=== PATIENT | male | born 1965 | race Caucasian/White ===

== ENCOUNTER 2020-07-02 14:25 | Observation (INO) | payer BC ==
--- OUTSIDE RECORDS SUMMARY | 2020-07-02 14:27 | XMS REPORT | Continuity of Care Document ---
:1965 Author Organization [facility] t Address [address] [place] [address] Care Team Providers Name Role Phone Unavailable Unavailable Unavailable Payers Payer Name Policy Type Policy Number Effective Date Expiration Date S ource Problems This patient has no known problems. Allergies, Adverse Reactions, Alerts Allergy Allergy Status Severity Reaction(s) Onset Inactive Treating Comm ents Source Name Type Date Date Clinician No Known DA Active U [facility] 11-05 [place] [facility] 00:00: [facility] Medications This patient has no known medications. Procedures This patient has no known procedures. Results Test Description Test Time Test Comments Results Result Comments Source GLUBED 2019-11-10 10:10:00 Test Item Value Reference Range Interpretation Comme nts GLUBED (test code = GLUBED) 190 mg/dL 60-125 H
[2020-07-02] MEDS ORDERED: BENZONATATE 100 MG CAP PO ONE (14:51)
[2020-07-02] MEDS ORDERED: ASPIRIN 81 MG CHEWABLE TABLET ONE (14:51)
[2020-07-02] MEDS ORDERED: ALBUTEROL INHALER 60 PUFF/8 GM IH ONE (14:51)
[2020-07-02] MEDS ORDERED: METHYLPREDNISOLONE 40 MG INJ ONE (14:51)
[2020-07-02 15:18] LABS: Absolute Lymphocytes (CBC) 0.6 K/uL (0.7-4.9); Basophils % 0.4 % (0-1.3); Hematocrit 47.1 % (39.6-49.0); Lymphocytes % 10.9 % (15.3-44.8); MPV 8.2 fL (7.6-11.3); RBC Red Blood Cell Count 5.61 M/uL (4.33-5.43)
[2020-07-02 15:20] LABS: Protime INR 1.33
[2020-07-02] MEDS ORDERED: ACETAMINOPHEN 500 MG TAB ONE (15:26)
--- NOTE | 2020-07-02 15:31 | RAD REPORT ---
EXAM DESCRIPTION: RAD - Chest Single View - 07/02/2020 3:17 pm CLINICAL HISTORY: Cough;SOB, COVID positive COMPARISON: Portable July 2012 TECHNIQUE: AP portable chest image was obtained 07/02/2020 3:17 pm . FINDINGS: Lung volumes are low. Bilateral airspace opacification is present slightly worse on the le ft. This is primarily peripheral in distribution. Cardiac silhouette is enlarged by the body habitus and low lung volume affects. Trachea is midline. No measurable pleural effusion and no pneumothorax. No acute bony abnormality seen. No acute aortic findings suspected. IMPRESSION: Bilateral COVID-19 pneumonia pattern worse on the left.
[2020-07-02 15:58] LABS: ALT/SGPT 75 U/L (12-78); AST/SGOT 83 U/L (15-37); Albumin 3.5 g/dL (3.4-5.0); Alkaline Phosphatase 58 U/L (45-117); BUN Blood Urea Nitrogen 22 mg/dL (7-18); Bicarbonate 23 mmol/L (21-32); Bilirubin Direct 0.2 mg/dL (0-0.2); Bilirubin Total 0.7 mg/dL (0.2-1.0); Glucose Level 194 mg/dL (74-106); Magnesium 2.1 mg/dL (1.8-2.4); NT PRO-BNP 26 pg/mL (<125); Potassium 3.9 mmol/L (3.5-5.1); Sodium Level 135 mmol/L (136-145); Troponin (Emerg Dept Use Only) < 0.02 ng/mL (0.0-0.045)
--- NOTE | 2020-07-02 17:05 | EDPHYS ---
Physician Documentation [facility] Name: Naveed Luis Age: 55 yrs Sex: Male : 1965 Arrival Date: 07/02/2020 Time: 14:26 Bed 7 Private MD: ED Physician Devin Bean HPI: 07/02 14:29 This 55 yrs old Male presents to ER via Unassigned with complaints of cp Shortness Of Breath. 14:29 The patient has shortness of breath at rest. Onset: The symptoms/episode began/occurred cp gradually, and became worse today. Duration: The symptoms are continuous, and are steadily getting worse. Associated signs and symptoms: Pertinent positives: non-productive cough, Pertinent negatives: chest pain, fever. Patient reports he tested positive for COVID-[address] Kc's office. Historical: - Allergies: 14:39 No Known Allergies; tw2 - PMHx: 14:39 Hypertension; Hyperlipidemia; tw2 - Immunization history:: Adult Immunizations. - Social history:: Smoking status: . ROS: 14:35 Constitutional: Negative for fever, poor PO intake. cp 14:35 Eyes: Negative for injury, pain, redness, and discharge. cp 14:35 ENT: Negative for ear pain, sore throat, difficulty swallowing, difficulty handling secretions. 14:35 Cardiovascular: Negative for chest pain, edema, palpitations. 14:35 Respiratory: Positive for cough, shortness of breath, at rest. Negative for sputum production, wheezing. 14:35 Abdomen/GI: Negative for abdominal pain, nausea, vomiting, and diarrhea, black/tarry stool. 14:35 Neuro: Negative for altered mental status, dizziness, headache, syncope, weakness. 14:35 All other systems are negative. Exam: 14:40 Constitutional: The patient appears in no acute distress, alert, awake, cp non-diaphoretic, non-toxic, well developed, well nourished. 14:40 Head/Face: Normocephalic, atraumatic. cp 14:40 Eyes: Periorbital structures: appear normal, Conjunctiva: normal, no exudate, no injection, Sclera: no appreciated abnormality, Lids and lashes: appear normal, bilaterally. 14:40 ENT: External ear(s): are unremarkable, Nose: is normal, Mouth: Lips: moist, Oral mucosa: pink and intact, moist, Posterior pharynx: Airway: no evidence of obstruction, patent. 14:40 Neck: ROM/movement: is normal, is supple, without pain, no range of motions limitations. 14:40 Chest/axilla: Inspection: normal, Palpation: is normal, no crepitus, no tenderness. 14:40 Cardiovascular: Rate: normal, Rhythm: regular, Heart sounds: murmur, not appreciated, Edema: is not appreciated, JVD: is not appreciated. 14:40 Respiratory: the patient does not display signs of respiratory distress, Respirations: normal, no use of accessory muscles, no retractions, labored breathing, is not present, Breath sounds: bronchial sounds, that are mild, are heard diffusely, decreased breath sounds, are not appreciated, stridor, is not appreciated. 14:40 Abdomen/GI: Inspection: abdomen appears normal, Bowel sounds: active, all quadrants, Palpation: abdomen is soft and non-tender, in all quadrants, voluntary guarding, is not appreciated, involuntary guarding, is not appreciated. 14:40 Back: pain, is absent, ROM is normal. 14:40 Skin: no rash present. 14:40 Neuro: Orientation: to person, place \\T\\ time. Mentation: is normal, Cerebellar function: is grossly normal, Motor: moves all fours, strength is normal, Sensation: is normal. 15:05 ECG was reviewed by the Attending Physician. cp Vital Signs: 14:27 BP 118 / 76; Pulse 95; Resp 17; Pulse Ox 91% on R/A; tw2 15:01 Temp 101.8(O); tw2 15:33 BP 107 / 75; Pulse 86; Resp 20; Pulse Ox 92% on R/A; mh5 16:30 BP 121 / 77; Pulse 80; Resp 19; Pulse Ox 93% on R/A; tw2 17:30 BP 107 / 74; Pulse 75; Resp 20; Pulse Ox 93% on R/A; tw2 18:21 BP 102 / 68; Pulse 75; Resp 22; Pulse Ox 90% on R/A; hb 18:27 Temp 98.3(O); Pulse Ox 93% on 2 lpm NC; tw2 19:28 BP 108 / 77; Pulse 71; Resp 22; Pulse Ox 94% on 2 lpm NC; wh 14:27 provider notified tw2 15:01 provider notified tw2 MDM: 14:32 Patient medically screened. 15:00 Differential diagnosis: Bronchitis CHF exacerbation, Myocardial Infarction pneumonia, cp Pneumothorax pulmonary edema, Pulmonary Embolism Sepsis. 17:00 Data reviewed: vital signs, nurses notes, lab test result(s), EKG, radiologic studies, cp plain films. 17:00 Physician consultation: Luis Alberto Granado DO was called at 17:00, was contacted at 17:00, cp regarding admission, to the telemetry unit. patient's condition, and will see patient in ED, shortly. 07/02 14:31 Order name: Basic Metabolic Panel cp 07/02 14:31 Order name: CBC with Diff cp 07/02 14:31 Order name: LFT's cp 07/02 14:31 Order name: Magnesium cp 07/02 14:31 Order name: NT PRO-BNP cp 07/02 14:31 Order name: PT-INR cp 07/02 14:31 Order name: Troponin (emerg Dept Use Only) cp 07/02 14:31 Order name: D-Dimer 07/02 15:23 Order name: CBC with Automated Diff; Complete Time: 16:00 EDMS 07/02 16:00 Interpretation: Normal except: RBC 5.61; EDUARDO% 81.9; LYM% 10.9; LYMA 0.6. cp 07/02 15:24 Order name: Protime (+INR); Complete Time: 16:00 EDMS 07/02 15:24 Order name: D-Dimer; Complete Time: 16:00 EDMS 07/02 15:58 Order name: Basic Metabolic Panel; Complete Time: 16:00 EDMS 07/02 16:00 Interpretation: Normal except: NA 135; GLUC 194; BUN 22; GFR 70. cp 07/02 15:58 Order name: Liver (Hepatic) Function; Complete Time: 16:00 EDMS 07/02 15:58 Order name: Troponin (Emerg Dept Use Only); Complete Time: 16:00 EDMS 07/02 14:31 Order name: XRAY Chest (1 view) cp 07/02 15:31 Order name: RAD; Complete Time: 16:00 EDMS 07/02 15:58 Order name: NT PRO-BNP; Complete Time: 16:00 EDMS 07/02 15:58 Order name: Magnesium; Complete Time: 16:00 EDMS 07/02 17:32 Order name: CRP cp 07/02 17:32 Order name: Ferritin cp 07/02 18:21 Order name: COVID-19 sv 07/02 18:41 Order name: CORONAVIRUS EDCT 07/02 18:43 Order name: C-Reactive Protein EDCT 07/02 18:43 Order name: Ferritin EDCT 07/02 19:18 Order name: SARS-COV-2 RT PCR EDCT 07/02 14:31 Order name: EKG; Complete Time: 14:33 cp 07/02 14:31 Order name: Cardiac monitoring; Complete Time: 15:00 cp 07/02 14:31 Order name: EKG - Nurse/Tech; Complete Time: 15:00 cp 07/02 14:31 Order name: IV Saline Lock; Complete Time: 15:00 cp 07/02 14:31 Order name: Labs collected and sent; Complete Time: 15:00 cp 07/02 14:31 Order name: O2 Per Protocol; Complete Time: 15:00 cp 07/02 14:31 Order name: O2 Sat Monitoring; Complete Time: 15:01 cp 07/02 16:01 Order name: Misc. Order: ambulate patient with pulse ox; Complete Time: 19:19 cp 07/02 16:40 Order name: Oxygen: 2 liters nasal canula; Complete Time: 18:23 cp 07/02 17:55 Order name: Labs - recollect needed: lab printing label to pod ; Complete Time: 18:22 eb EC:05 Rate is 92 beats/min. Rhythm is regular. [place] interval is normal. QRS interval is normal. cp QT interval is normal. T waves are Inverted in lead aVR. Interpreted by me. Reviewed by me. Administered Medications: 14:59 Drug: SOLU-Medrol 80 mg Route: IVP; Site: left hand; tw2 18:30 Follow up: Response: No adverse reaction tw2 15:00 Drug: Albuterol HFA Inhaler 2 puffs Route: Inhalation; tw2 15:00 Drug: Tessalon Perle 200 mg Route: PO; tw2 18:30 Follow up: Response: No adverse reaction; Marked relief of symptoms; Marked relief of tw2 symptoms, pt reports "my cough seems to have gone away now" 15:00 Drug: Aspirin 81 mg Route: PO; tw2 18:30 Follow up: Response: No adverse reaction tw2 15:13 Drug: Tylenol 1000 mg Route: PO; tw2 18:30 Follow up: Response: No adverse reaction; Temperature is decreased tw2 Disposition: 07/02/20 17:05 Hospitalization ordered by Luis Alberto Granado for Inpatient Admission. Preliminary diagnosis are Pneumonia due to other specified infectious organisms, Hypoxemia, Coronavirus infection, unspecified. - Bed requested for Telemetry/MedSurg (Inpatient). - Status is Inpatient Admission. - Condition is Stable. - Problem is new. - Symptoms have improved. Addendum: 07/05/2020 06:22 Co-signature as Attending Physician, Devin Bean MD I agree with the assessment and t w4 plan of care. Signatures: Dispatcher [employer] Nyla Felix, RN RN Prudencio Pitt PA PA cp Wise, Tara, RN RN tw2 Flavio Costello RN RN wh Wadley, Terrence, MD MD tw4 Payton Wolf Corrections: (The following items were deleted from the chart) 07/02 18:57 17:05 Hospitalization Ordered by Luis Alberto Granado DO for Inpatient Admission. Preliminary sv diagnosis is Pneumonia due to other specified infectious organisms; Hypoxemia; Coronavirus infection, unspecified. Bed requested for Telemetry/MedSurg (Inpatient). Status is Inpatient Admission. Condition is Stable. Problem is new. Symptoms have improved. cp 19:36 18:57 07/02/2020 17:05 Hospitalization Ordered by Luis Alberto Granado DO for Inpatient Admission. Preliminary diagnosis is Pneumonia due to other specified infectious organisms; Hypoxemia; Coronavirus infection, unspecified. Bed requested for Telemetry/MedSurg (Inpatient). Status is Inpatient Admission. Condition is Stable. Problem is new. Symptoms have improved. sv
--- NOTE | 2020-07-02 17:05 | ER ---
Nurse's Notes [facility] Name: Naveed Luis Age: 55 yrs Sex: Male : 1965 Arrival Date: 07/02/2020 Time: 14:26 Bed 7 Private MD: Diagnosis: Pneumonia due to other specified infectious organisms;Hypoxemia;Coronavirus infection, unspecified Presentation: 07/02 14:27 Chief complaint: EMS states: pt from home, is a pt of Dr. Montgomery, was seen recently \\T\\ tw2 tested + for COVID, c/o sob, 97%RA afebrile. Coronavirus screen: cough unrelated to allergies, difficulty breathing, shortness of breath, Client presents with at least one sign or symptom that may indicate coronavirus-19. Standard/surgical mask placed on the client. Provider contacted for isolation considerations. Client reports previous positive COVID test result. Ebola Screen: Patient denies travel to an Ebola-affected area in the 21 days before illness onset. Initial Sepsis Screen: Does the patient meet any 2 criteria? HR > 90 bpm. No. Patient's initial sepsis screen is negative. Does the patient have a suspected source of infection? Yes: Productive cough/pneumonia. Risk Assessment: Do you want to hurt yourself or someone else? Patient reports no desire to harm self or others. Onset of symptoms was July 02, 2020. 14:27 Method Of Arrival: EMS: [facility] tw2 14:27 Acuity: SRAVAN 3 tw2 Triage Assessment: 14:27 General: Appears in no apparent distress. obese, well groomed, Behavior is calm, tw2 cooperative, appropriate for age. General: Reports fatigue for "body aches". Pain: Denies pain. EENT: No signs and/or symptoms were reported regarding the EENT system. Neuro: Level of Consciousness is awake, alert, obeys commands, Oriented to person, place, time, situation. Cardiovascular: Capillary refill < 3 seconds Patient's skin is warm and dry. Respiratory: Reports shortness of breath at rest on exertion cough that is non-productive, persistent Onset: The symptoms/episode began/occurred this morning, the patient has moderate shortness of breath. GI: Abdomen is round non-distended, obese. : No signs and/or symptoms were reported regarding the genitourinary system. Derm: No signs and/or symptoms reported regarding the dermatologic system. Musculoskeletal: Range of motion: intact in all extremities. Historical: - Allergies: 14:39 No Known Allergies; tw2 - PMHx: 14:39 Hypertension; Hyperlipidemia; tw2 - Immunization history:: Adult Immunizations. - Social history:: Smoking status: . Screenin:14 Abuse screen: Denies threats or abuse. Nutritional screening: No deficits noted. tw2 Tuberculosis screening: No symptoms or risk factors identified. Fall Risk None identified. Assessment: 14:27 Respiratory: Airway is patent Respiratory effort is even, unlabored, Breath sounds are tw2 diminished bilaterally. 15:15 Cardiovascular: Rhythm is regular. tw2 15:16 Reassessment: see triage assessment, pt also states "test POSITIVE for COVID this past sunday". 16:30 Reassessment: Patient appears in no apparent distress at this time. Patient and/or tw2 family updated on plan of care and expected duration. Pain level reassessed. pt reports "i am just too short of breath to walk around and even at home i was laying in bed and my pulse ox read 89% and i wasn't even doing anything". 18:20 General: Appears in no apparent distress. Behavior is calm, cooperative. Pain: Denies hb pain. Neuro: Level of Consciousness is awake, alert, obeys commands, Oriented to person, place, time, situation. Cardiovascular: Capillary refill < 3 seconds Patient's skin is warm and dry. Respiratory: Reports shortness of breath at rest cough that is non-productive, Airway is patent Respiratory effort is even, unlabored, Respiratory pattern is regular, symmetrical, Breath sounds are diminished bilaterally. GI: No signs and/or symptoms were reported involving the gastrointestinal system. : No signs and/or symptoms were reported regarding the genitourinary system. EENT: No signs and/or symptoms were reported regarding the EENT system. Derm: Skin is pink, warm \\T\\ dry. Musculoskeletal: No signs and/or symptoms reported regarding the musculoskeletal system. 18:28 Reassessment: Patient appears in no apparent distress at this time. Patient and/or tw2 family updated on plan of care and expected duration. Pain level reassessed. 19:30 Reassessment: Patient appears in no apparent distress at this time. Patient and/or wh family updated on plan of care and expected duration. Pain level reassessed. Patient is alert, oriented x 3, equal unlabored respirations, skin warm/dry/pink. Vital Signs: 14:27 BP 118 / 76; Pulse 95; Resp 17; Pulse Ox 91% on R/A; tw2 15:01 Temp 101.8(O); tw2 15:33 BP 107 / 75; Pulse 86; Resp 20; Pulse Ox 92% on R/A; mh5 16:30 BP 121 / 77; Pulse 80; Resp 19; Pulse Ox 93% on R/A; tw2 17:30 BP 107 / 74; Pulse 75; Resp 20; Pulse Ox 93% on R/A; tw2 18:21 BP 102 / 68; Pulse 75; Resp 22; Pulse Ox 90% on R/A; hb 18:27 Temp 98.3(O); Pulse Ox 93% on 2 lpm NC; tw2 19:28 BP 108 / 77; Pulse 71; Resp 22; Pulse Ox 94% on 2 lpm NC; 14:27 provider notified tw2 15:01 provider notified tw2 ED Course: 14:26 Patient arrived in ED. tw2 14:29 Prudencio Acevedo PA is PHCP. cp 14:29 Devin Bean MD is Attending Physician. cp 14:38 Triage completed. tw2 14:47 Arm band placed on. tw2 14:55 Inserted saline lock: 20 gauge in left hand, using aseptic technique. Blood collected. tw2 Missed attempt(s): 20 gauge in right antecubital area. per Tech. Cathy Bleeding controlled, band aid applied, catheter tip intact. Missed attempt(s): 22 gauge in right forearm. by Tech. [place] Bleeding controlled, band aid applied, catheter tip intact. 14:59 Freida Rojas, RN is Primary Nurse. tw2 15:06 Basic Metabolic Panel Sent. 5 15:06 D-Dimer Sent. 5 15:06 CBC with Diff Sent. 5 15:06 LFT's Sent. 5 15:07 Patient has correct armband on for positive identification. Bed in low position. Call [facility] light in reach. Side rails up X 1. internet merchant on. Pulse ox on. NIBP on. 15:07 Magnesium Sent. 5 15:07 NT PRO-BNP Sent. mh5 15:07 PT-INR Sent. [facility] 15:07 Troponin (emerg Dept Use Only) Sent. [facility] 15:08 EKG done, by ED staff, reviewed by Devin Bean MD. [facility] 17:04 Luis Alberto Granado DO is Hospitalizing Provider. cp 18:27 XRAY Chest (1 view) Sent. sv 18:34 Ferritin Sent. sv 18:34 CRP Sent. sv 18:51 COVID-19 Sent. hb 18:51 CORONAVIRUS Sent. hb 19:00 Report given to BRENNON Muniz and BRENNON Lewis. tw2 19:29 No provider procedures requiring assistance completed. Patient admitted, IV remains in place. Administered Medications: 14:59 Drug: SOLU-Medrol 80 mg Route: IVP; Site: left hand; tw2 18:30 Follow up: Response: No adverse reaction tw2 15:00 Drug: Albuterol HFA Inhaler 2 puffs Route: Inhalation; tw2 15:00 Drug: Tessalon Perle 200 mg Route: PO; tw2 18:30 Follow up: Response: No adverse reaction; Marked relief of symptoms; Marked relief of tw2 symptoms, pt reports "my cough seems to have gone away now" 15:00 Drug: Aspirin 81 mg Route: PO; tw2 18:30 Follow up: Response: No adverse reaction tw2 15:13 Drug: Tylenol 1000 mg Route: PO; tw2 18:30 Follow up: Response: No adverse reaction; Temperature is decreased tw2 Outcome: 17:05 Decision to Hospitalize by Provider. cp 19:29 Admitted to Tele accompanied by tech, via wheelchair, room 407, with oxygen, with chart, Report called to Rosa Maria Maza RN 19:29 Condition: stable 19:29 Instructed on the need for admit. 19:36 Patient left the ED. Signatures: Nyla Trujillo, RN Prudencio Vasquez PA PA cp Baxter, Heather, Freida Scherer RN, RN RN [facility]aley Orta [facility] Flavio Costello RN RN
--- NOTE | 2020-07-02 18:28 | P.HP ---
Certification for Inpatient Patient admitted to: Observation With expected LOS: <2 Midnights Patient will require the following post-hospital care: None Practitioner: I am a practitioner with admitting privileges, knowledge of patient current condition, hospital course, and medical plan of care. Services: Services provided to patient in accordance with Admission requirements found in Title 42 Section 412.3 of the Code of Federal Regulations Patient History Date of Service: 07/02/20 Primary Care Provider: Dr. Kc Reason for admission: Shortness of breath History of Present Illness: 55-year-old male with history of hypertension diabetes mellitus type 2. Patient presents with increasing shortness of breath. Patient was diagnosed with COVID last Sunday. He was given Zithromax. Patient did not improved. Patient continued have fever and increasing shortness of breath. Some cough noted. He denies any nausea, vomiting. He came to the ER for further evaluation. In the ER patient evaluated. Patient was desaturating when moving. Room-air saturations stable but with exertion around 88%. CBC reviewed. BMP also reviewed. Chest x-ray shows viral changes. Patient admitted for observation. Patient does not smoke or drink. Allergies No Known Allergies Allergy (Unverified 07/17/12 11:27) Home Medications: Loratadine [Claritin*] 10 mg PO DAILY 07/18/12 atenoloL [Tenormin*] 100 mg PO DAILY 07/18/12 - Past Medical/Surgical History Has patient received pneumonia vaccine in the past: Yes -: Diabetes mellitus type 2 -: Hypertension Past Surgical History: Reviewed- Non-Contributory Psychosocial/ Personal History: Patient is - Family History Family History: Reviewed- Non-Contributory - Social History Smoking Status: Never smoker Alcohol use: No CD- Drugs: No Caffeine use: Yes Place of Residence: Home Review of Systems General: As per HPI Eyes: Unremarkable ENT: Unremarkable Respiratory: Shortness of Breath, SOB with Excertion, As per HPI Cardiovascular: Unremarkable Gastrointestinal: Unremarkable Genitourinary: Unremarkable Musculoskeletal: Unremarkable Integumentary: Unremarkable Neurological: Unremarkable Lymphatics: Unremarkable Physical Examination - Physical Exam General: Alert, In no apparent distress, Oriented x3, Cooperative HEENT: Atraumatic, Mucous membr. moist/pink Neck: Supple Respiratory: Other (Slight tachypnea. Patient on 2 L) Cardiovascular: Normal pulses, Regular rate/rhythm Gastrointestinal: Normal bowel sounds, Soft and benign, Non-distended, No masses, No rebound, No guarding Musculoskeletal: No erythema, No tenderness, No warmth Integumentary: No tenderness/swelling, No erythema, No warmth, No cyanosis Neurological: Normal speech, Normal strength at 5/5 x4 extr, Normal tone, Normal affect - Studies Laboratory Data (last 24 hrs) 07/02/20 14:57: PT 15.6 H, INR 1.33 07/02/20 14:57: WBC 5.6, Hgb 15.7, Hct 47.1, Plt Count 253 07/02/20 14:57: Sodium 135 L, Potassium 3.9, BUN 22 H, Creatinine 1.10, Glucose 194 H, Magnesium 2.1, Total Bilirubin 0.7, AST 83 H, ALT 75, Alkaline Phosphatase 58 Assessment and Plan - Plan Impression: Dyspnea secondary to bilateral COVID 19 pneumonia with hypoxia Diabetes mellitus type 2 [id number] Hypertension Plan: Dyspnea secondary to bilateral COVID 19 pneumonia with hypoxia: Patient will be admitted for observation. Will continue with oxygen to maintain sats above 93%. Monitor on telemetry. Recheck lab and trend CRP and ferritin. Will start IV Solu-Medrol, ivermectin, and supplements. Will consult pulmonology. Patient will likely require home oxygen at discharge. Anticipate improvement over the next 24 hr. Possible discharge tomorrow morning with oxygen if patient able to ambulate without significant desaturation and with significant improvement. I will turn the service over to the hospitalist team tomorrow. I will go plan of care with him. Diabetes mellitus type 2 [id number]: Will start Accu-Cheks. Continue sliding scale. Will restart home metformin. Hypertension: Will restart atenolol. Discharge Plan: Home Plan to discharge in: 24 Hours - Advance Directives Does patient have a Living Will: No Does patient have a Durable POA for Healthcare: No - Code Status/Comfort Care Code Status Assessed: Yes (Patient is full code) Time Spent Managing Pts Care (In Minutes): 55
[2020-07-02 18:43] LABS: Ferritin 747.2 ng/mL (26-388)
[2020-07-02 20:24] VITALS: BMI 36.3
[2020-07-02] MEDS ORDERED: ALBUTEROL INHALER 60 PUFF/8 GM IH PRN (20:30)
[2020-07-02] MEDS ORDERED: ONDANSETRON 4 MG/2 ML VIAL IV PRN (20:30)
[2020-07-02] MEDS ORDERED: IVERMECTIN 3 MG TABLET PO SCH (20:30)
[2020-07-02] MEDS ORDERED: ACETAMINOPHEN 500 MG TAB PO PRN (20:30)
[2020-07-02] MEDS: atenoloL 25 MG TAB PO SCH (21:00)
[2020-07-02] MEDS ORDERED: POTASSIUM CL SA 10 MEQ TAB PO ONE (21:02)
[2020-07-02] MEDS: THIAMINE HCL 100 MG TABLET PO SCH (21:22)
[2020-07-02] MEDS: INSULIN -REGULAR HUMAN 50 UNIT/0.5 ML ML SQ SCH (21:23)
[2020-07-02] MEDS: ATORVASTATIN 40 MG TAB PO SCH (21:23)
[2020-07-02] MEDS: ASCORBIC ACID 500 MG TABLET PO SCH (21:23)
[2020-07-02] MEDS: FAMOTIDINE 20 MG TAB PO SCH (21:23)
[2020-07-02] MEDS: MELATONIN 5 MG TABLET PO SCH (21:27)
[2020-07-03] MEDS: BENZONATATE 100 MG CAP PO PRN ×2 (00:43→20:36)
[2020-07-03] MEDS: METHYLPREDNISOLONE 40 MG INJ IV SCH ×3 (00:43→16:30)
[2020-07-03 04:58] LABS: Urine Appearance CLEAR; Urine Bilirubin NEGATIVE (NEG); Urine Blood NEGATIVE (NEG); Urine Color DK YELLOW; Urine Glucose 3+ (NEG); Urine Protein 2+ (NEG); Urine Specific Gravity >=1.030 (1.005-1.030); Urine Urobilinogen 0.2 mg/dL (0.2-1.0); Urine pH 5.5 (5.0-7.0)
[2020-07-03 05:28] LABS: Urine Microscopic Reflex ORDER UMIC
[2020-07-03 05:49] LABS: Urine Bacteria 20-50 /HPF (NONE SEEN); Urine RBC <5 /HPF (NONE SEEN)
[2020-07-03 05:50] LABS: Urine Mucus 3+ /HPF (NONE SEEN)
[2020-07-03 06:44] LABS: Absolute Lymphocytes (CBC) 0.6 K/uL (0.7-4.9); Basophils % 0.2 % (0-1.3); Lymphocytes % 14.2 % (15.3-44.8); MPV 8.1 fL (7.6-11.3); RBC Red Blood Cell Count 5.44 M/uL (4.33-5.43)
[2020-07-03 06:59] LABS: Magnesium 2.3 mg/dL (1.8-2.4); Potassium 4.1 mmol/L (3.5-5.1)
[2020-07-03] MEDS: FAMOTIDINE 20 MG TAB PO SCH ×2 (08:52→19:46)
[2020-07-03] MEDS: METFORMIN HCL 500 MG TAB PO SCH ×2 (08:52→16:30)
[2020-07-03] MEDS: THIAMINE HCL 100 MG TABLET PO SCH ×2 (08:52→19:46)
[2020-07-03] MEDS: ASCORBIC ACID 500 MG TABLET PO SCH ×4 (08:52→19:46)
[2020-07-03] MEDS: VITAMIN D 1000 UNIT TAB PO SCH (08:52)
[2020-07-03] MEDS: ENOXAPARIN 40 MG/0.4 ML SQ SCH (08:53)
[2020-07-03] MEDS: ZINC SULFATE 220 MG CAP PO SCH (08:53)
[2020-07-03] MEDS: INSULIN -REGULAR HUMAN 50 UNIT/0.5 ML ML SQ SCH ×4 (08:54→20:36)
[2020-07-03] MEDS: atenoloL 25 MG TAB PO SCH ×2 (08:54→20:36)
--- NOTE | 2020-07-03 10:23 | P.PN ---
Subjective Date of Service: 07/03/20 Primary Care Provider: Dr. Kc Chief Complaint: Shortness of breath Subjective: New changes, C/O voiced (- new diarrhea with fecal incontinence , worse with coughing -reports recent z-vanita use 1 week ago still cough symptoms) Physical Examination - Vital Signs Temperature: 97 F Blood Pressure: 113/67 Pulse: 70 Respirations: 20 Pulse Ox (%): 97 - Physical Exam General: Alert, Oriented x3, Obese HEENT: Atraumatic, Normocephalic, PERRLA Neck: 2+ carotid pulse no bruit, JVD not distended Respiratory: Normal air movement, Diminished Cardiovascular: Regular rate/rhythm, Normal S1 S2 Gastrointestinal: Normal bowel sounds, Soft and benign, Non-distended Musculoskeletal: No clubbing, No swelling Neurological: Normal speech, Normal strength at 5/5 x4 extr, Normal tone - Studies Laboratory Data (last 24 hrs) 07/02/20 14:57: PT 15.6 H, INR 1.33 07/02/20 14:57: WBC 5.6, Hgb 15.7, Hct 47.1, Plt Count 253 07/02/20 14:57: Sodium 135 L, Potassium 3.9, BUN 22 H, Creatinine 1.10, Glucose 194 H, Magnesium 2.1, Total Bilirubin 0.7, AST 83 H, ALT 75, Alkaline Phosphatase 58 Assessment & Plan Physician Review: Patient Assessed, Agree with Above Assessment and Plan Physician Review Additional Text: Impression: Persistent Cough symptoms Diarrhea Dyspnea secondary to bilateral COVID 19 pneumonia with hypoxia Diabetes mellitus type 2 [id number] Hypertension Plan: - SOB improving , continue - will add guaifensesin to regime for cough symptoms - wean oxygen as tolerated - will obtain stool for C diff today -c/w Ivermectin regime for Covid , add zinc and c/w steroids 07/02/20 Dyspnea secondary to bilateral COVID 19 pneumonia with hypoxia: Patient will be admitted for observation. Will continue with oxygen to maintain sats above 93%. Monitor on telemetry. Recheck lab and trend CRP and ferritin. Will start IV Solu-Medrol, ivermectin, and supplements. Will consult pulmonology. Patient will likely require home oxygen at discharge. Anticipate improvement over the next 24 hr. Possible discharge tomorrow morning with oxygen if patient able to ambulate without significant desaturation and with significant improvement. I will turn the service over to the hospitalist team tomorrow. I will go plan of care with him. Diabetes mellitus type 2 [id number]: Will start Accu-Cheks. Continue sliding scale. Will restart home metformin. Hypertension: Will restart atenolol. Discharge Plan: Home Plan to discharge in: 24 Hours
[2020-07-03] MEDS: GUAIFENESIN 600 MG SA TAB PO SCH ×2 (10:36→19:46)
[2020-07-03] MEDS: NA CHLORIDE 0.9% 1,000 ML IV SCH ×2 (13:09→22:41)
--- NOTE | 2020-07-03 16:41 | P.CNS ---
Date of Consult: 07/03/20 Reason for Consult: MARGARITO Primary Care Provider: Dr. Kc Chief Complaint: Shortness of breath History of Present Illness: 55-year-old male with history of hypertension diabetes mellitus type 2 Patient presents with increasing shortness of breath. Patient was diagnosed with COVID last Sunday, started on Po ABx, didint improve in ER Cr was 1.1 , today ts 1.4, no contrast exposure he stated he had poor oral intake, today , had diarrhea Review of Systems: Head and Neck: No red eye. No ear pain. GI: poor oral intake , diarrhea : No polyuria, no dysuria, no hematuria. Rodding Machine Tender: Not applicable. Respiratory: has shortness of breath and cough Cardiovascular: No chest pain. Endocrine: No polydipsia. Skin: No rash. Neuro: Has neuropathy. Musculoskeletal: No back pain . Physical exam general: AAOX3, in mild distress Neck; Supple, No elevated JVD hear: RRR, normal S1,2 no murmur or rub Chest: decreased air enrt b/l Abdomen: Soft , Nt Extremities trace edema, MARGARITO possibly due to dehydration as he has poor appetiate and diarrjhea cont IVF will order renal US Avoid nephrotoxic meds DM cont metfromin for now will dc if cr cont to be elevated HTN Bp controlled COVID 19 pneumonia on steroids total time spent 45 Allergies No Known Allergies Allergy (Verified 07/02/20 20:41) Home Medications: Loratadine [Claritin*] 10 mg PO DAILY 07/18/12 atenoloL [Tenormin*] 100 mg PO DAILY 07/18/12 Areds 2 1 tab PO DAILY 07/02/20 Cholecalciferol (Vitamin D3) [Vitamin D3] 5,000 unit PO DAILY 07/02/20 Glimepiride 1 tab PO SEECOM 07/02/20 Metformin ER [Glucophage ER*] 2 tab PO BID 07/02/20 Pravastatin Sodium 1 tab PO BEDTIME 07/02/20 - Past Medical/Surgical History Diabetic: Yes -: Diabetes mellitus type 2 -: Hypertension -: knee surgery x 5 Psychosocial/ Personal History: Patient is - Family History Mother Notes: sarcoma Father Medical History: Heart disease Brother Medical History: Heart disease - Social History Smoking Status: Never smoker Alcohol use: Yes CD- Drugs: No Caffeine use: Yes Place of Residence: Home Physical Examination Temp Pulse Resp BP Pulse Ox 96.8 F 77 22 H 121/65 94 07/03/20 12:00 07/03/20 12:00 07/03/20 12:00 07/03/20 12:00 07/03/20 12:00
[2020-07-03] MEDS: ATORVASTATIN 40 MG TAB PO SCH (19:46)
[2020-07-03] MEDS: MELATONIN 5 MG TABLET PO SCH (19:46)
[2020-07-03] MEDS ORDERED: IVERMECTIN 3 MG TABLET PO SCH (23:45)
[2020-07-04] MEDS: METHYLPREDNISOLONE 40 MG INJ IV SCH ×2 (00:29→08:14)
[2020-07-04 03:54] LABS: Absolute Lymphocytes (CBC) 0.8 K/uL (0.7-4.9); Basophils % 0.1 % (0-1.3); Hematocrit 46.3 % (39.6-49.0); Lymphocytes % 7.7 % (15.3-44.8); MPV 8.2 fL (7.6-11.3); RBC Red Blood Cell Count 5.46 M/uL (4.33-5.43)
[2020-07-04 04:06] LABS: Albumin 3.3 g/dL (3.4-5.0); Bilirubin Total 0.5 mg/dL (0.2-1.0); Magnesium 2.3 mg/dL (1.8-2.4); Protein, Total 7.7 g/dL (6.4-8.2)
[2020-07-04 04:41] VITALS: TEMP 97.5
--- NOTE | 2020-07-04 07:37 | RAD REPORT ---
EXAM DESCRIPTION: US - Renal Ultrasound-Complete - 07/03/2020 9:24 pm CLINICAL HISTORY: MARGARITO COMPARISON: No comparisons FINDINGS: The right kidney measures 12.2 x 6.6 x 6.3 cm. The left kidney measures 12.4 x 5.9 x 6.4 cm. Renal cortical thickness and echogenicity are normal. No hydronephrosis or suspicious renal mass. No bladder wall thickening or mass. No intraluminal stone or mass. IMPRESSION: No hydronephrosis or suspicious renal mass. No other significant findings.
--- NOTE | 2020-07-04 08:08 | P.CNS ---
Date of Consult: 06/26/20 Primary Care Provider: Dr. Kc Chief Complaint: Mcdonald virus pneumonia History of Present Illness: Patient is 55 years of age with a history of diabetes hypertension presented with shortness of breath he was just diagnosed with mcdonald virus was treated with antibiotics did not get better in was admitted with hypoxemia he he is currently doing better continue with steroids ivermectin periods also been complaining of a cough Allergies No Known Allergies Allergy (Verified 07/02/20 20:41) Home Medications: Loratadine [Claritin*] 10 mg PO DAILY 07/18/12 atenoloL [Tenormin*] 100 mg PO DAILY 07/18/12 Areds 2 1 tab PO DAILY 07/02/20 Cholecalciferol (Vitamin D3) [Vitamin D3] 5,000 unit PO DAILY 07/02/20 Glimepiride 1 tab PO SEECOM 07/02/20 Metformin ER [Glucophage ER*] 2 tab PO BID 07/02/20 Pravastatin Sodium 1 tab PO BEDTIME 07/02/20 Aspirin [Aspirin EC 325 MG] 325 mg PO DAILY #30 tablet. 07/04/20 Benzonatate [Tessalon Perle*] 200 mg PO TID PRN #20 cap 07/04/20 Fluticasone/Salmeterol [Advair 250-50 Diskus] 1 each IH BID #1 blst.w.dev 07/04/20 Ivermectin 3 mg PO ONCE 1 Days #6 tablet 07/04/20 dexAMETHasone [Dexamethasone] 4 mg PO BID 7 Days #14 tablet 07/04/20 - Past Medical/Surgical History Diabetic: Yes -: Diabetes mellitus type 2 -: Hypertension -: knee surgery x 5 Psychosocial/ Personal History: Patient is - Family History Mother Notes: sarcoma Father Medical History: Heart disease Brother Medical History: Heart disease - Social History Smoking Status: Never smoker Alcohol use: Yes CD- Drugs: No Caffeine use: Yes Place of Residence: Home Review of Systems General: Weakness Respiratory: Cough Physical Examination Temp Pulse Resp BP Pulse Ox 97.5 F 89 18 127/63 98 07/04/20 04:00 07/04/20 04:00 07/04/20 04:00 07/04/20 04:00 07/04/20 04:00 General: Alert, Mild distress Cardiovascular: No edema, Regular rate/rhythm, Normal S1 S2 - Problems (1) Pneumonia due to 2019 novel coronavirus Current Visit: Yes Status: Acute Plan: Patient is 55 years of age admitted with cough shortness of breath mild renal insufficiency chest x-ray shows bilateral pneumonia consistent with mcdonald virus continue with steroids ivermectin multi vitamin he is doing better kind possible discharge tomorrow labs and x-rays reviewed ferritin CRP both elevated he is maintaining good oxygen saturations on nasal cannula mild renal insufficiency continue with IV fluids
--- NOTE | 2020-07-04 08:09 | P.DS ---
Admission Date: 07/02/20 (Hospitalist) Discharge Date: 07/04/20 Primary Care Provider: Dr. Kc Disposition: ROUTINE DISCHARGE Discharge Condition: FAIR Reason for Admission: Mcdonald virus pneumonia - Problems (1) Pneumonia due to 2019 novel coronavirus Current Visit: Yes Status: Acute Brief History of Present Illness: Patient is 55 years of age with a history of diabetes hypertension presented with shortness of breath he was just diagnosed with mcdonald virus was treated with antibiotics did not get better in was admitted with hypoxemia he he is currently doing better continue with steroids ivermectin periods also been complaining of a cough Hospital Course: Patient admitted for mcdonald virus pneumonia he is improving significantly saturation satisfactory was set up with home oxygen plan to discharge on steroids ivermectin and aspirin as renal function is now normal is probably induced by mcdonald virus is given some IV fluids still has some mild coughing at the time of discharge he was alert oriented responsive cooperative chest clear cardiovascular system os all normal saturation satisfactory still has some dyspnea on mild exertion stable for discharge blood sugars elevated from steroids the go home on some Decadron and to follow with me in a week Vital Signs/Physical Exam: Temp Pulse Resp BP Pulse Ox 97.5 F 89 18 127/63 98 07/04/20 04:00 07/04/20 04:00 07/04/20 04:00 07/04/20 04:00 07/04/20 04:00 Laboratory Data at Discharge: WBC 10.9 K/uL (4.3-10.9) D 07/04/20 03:34 Hgb 15.5 g/dL (13.6-17.9) 07/04/20 03:34 Hct 46.3 % (39.6-49.0) 07/04/20 03:34 Plt Count 295 K/uL (152-406) D 07/04/20 03:34 PT 15.6 SECONDS (9.5-12.5) H 07/02/20 14:57 INR 1.33 07/02/20 14:57 Sodium 136 mmol/L (136-145) 07/04/20 03:34 Potassium 4.0 mmol/L (3.5-5.1) 07/04/20 03:34 BUN 33 mg/dL (7-18) H 07/04/20 03:34 Creatinine 1.09 mg/dL (0.55-1.3) 07/04/20 03:34 Glucose 202 mg/dL (74-106) H 07/04/20 03:34 Magnesium 2.3 mg/dL (1.8-2.4) 07/04/20 03:34 Total Bilirubin 0.5 mg/dL (0.2-1.0) 07/04/20 03:34 AST 62 U/L (15-37) H 07/04/20 03:34 ALT 63 U/L (12-78) 07/04/20 03:34 Alkaline Phosphatase 49 U/L (45-117) 07/04/20 03:34 Home Medications: Loratadine [Claritin*] 10 mg PO DAILY 07/18/12 atenoloL [Tenormin*] 100 mg PO DAILY 07/18/12 Areds 2 1 tab PO DAILY 07/02/20 Cholecalciferol (Vitamin D3) [Vitamin D3] 5,000 unit PO DAILY 07/02/20 Glimepiride 1 tab PO SEECOM 07/02/20 Metformin ER [Glucophage ER*] 2 tab PO BID 07/02/20 Pravastatin Sodium 1 tab PO BEDTIME 07/02/20 Aspirin [Aspirin EC 325 MG] 325 mg PO DAILY #30 tablet. 07/04/20 Benzonatate [Tessalon Perle*] 200 mg PO TID PRN #20 cap 07/04/20 Fluticasone/Salmeterol [Advair 250-50 Diskus] 1 each IH BID #1 blst.w.dev 07/04/20 Ivermectin 3 mg PO ONCE 1 Days #6 tablet 07/04/20 dexAMETHasone [Dexamethasone] 4 mg PO BID 7 Days #14 tablet 07/04/20 New Medications: Fluticasone/Salmeterol [Advair 250-50 Diskus] 1 each IH BID #1 blst.w.dev Aspirin [Aspirin EC 325 MG] 325 mg PO DAILY #30 tablet. dexAMETHasone [Dexamethasone] 4 mg PO BID 7 Days #14 tablet Ivermectin 3 mg PO ONCE 1 Days #6 tablet Benzonatate [Tessalon Perle*] 200 mg PO TID PRN #20 cap PRN Reason: Cough Followup: Bear Mclaughlin MD [ACTIVE - CAN ADMIT] - Unknown,U [Primary Care Provider] -
[2020-07-04] MEDS: atenoloL 25 MG TAB PO SCH (08:14)
[2020-07-04] MEDS: ENOXAPARIN 40 MG/0.4 ML SQ SCH (08:14)
[2020-07-04] MEDS: FAMOTIDINE 20 MG TAB PO SCH (08:14)
[2020-07-04] MEDS: VITAMIN D 1000 UNIT TAB PO SCH (08:15)
[2020-07-04] MEDS: GUAIFENESIN 600 MG SA TAB PO SCH (08:15)
[2020-07-04] MEDS: ZINC SULFATE 220 MG CAP PO SCH (08:16)
[2020-07-04] MEDS: METFORMIN HCL 500 MG TAB PO SCH (08:16)
[2020-07-04] MEDS: ASCORBIC ACID 500 MG TABLET PO SCH (08:16)
[2020-07-04] MEDS: INSULIN -REGULAR HUMAN 50 UNIT/0.5 ML ML SQ SCH ×2 (08:17→11:30)
[2020-07-04 08:20] VITALS: BP 125/73
[2020-07-04] MEDS: THIAMINE HCL 100 MG TABLET PO SCH (08:20)
--- NOTE | 2020-07-04 10:43 | P.PN ---
Subjective Date of Service: 07/04/20 Primary Care Provider: Dr. Kc Chief Complaint: Mcdonald virus pneumonia 55-year-old male with history of hypertension diabetes mellitus type 2 Patient presents with increasing shortness of breath. Patient was diagnosed with COVID last Sunday, started on Po ABx, didint improve in ER Cr was 1.1 , then up to 1.4, no contrast exposure today feels better CR normalized US: no hydro can be discharged from nephrology point of view Review of Systems: Head and Neck: No red eye. No ear pain. GI: poor oral intake , diarrhea : No polyuria, no dysuria, no hematuria. General Worker: Not applicable. Respiratory: shortness of breath and cough much improved Cardiovascular: No chest pain. Endocrine: No polydipsia. Skin: No rash. Neuro: Has neuropathy. Musculoskeletal: No back pain . Physical exam general: AAOX3, NAD Neck; Supple, No elevated JVD hear: RRR, normal S1,2 no murmur or rub Chest: decreased air enrt b/l Abdomen: Soft , Nt Extremities no edema, MARGARITO due to dehydration as he has poor appetiate and diarrjhea resolved renal US : no hydro Avoid nephrotoxic meds DM cont metfromin for now will dc if cr cont to be elevated HTN Bp controlled COVID 19 pneumonia on steroids total time spent 45 Physical Examination - Vital Signs Temperature: 97.5 F Blood Pressure: 125/73 Pulse: 85 Respirations: 19 Pulse Ox (%): 94 Assessment And Plan Physician Review: Patient Assessed, Agree with Above Assessment and Plan
[2020-07-04 11:03] VITALS: O2SAT 92
== END 2020-07-04 13:05 | disposition home or self-care (01) ==
LOC: ER 14:25 → ERHOLD 17:30 → 4TH 19:31
PROVIDERS: ADMIT Family Medicine; ATTEND Internal Medicine
DX: U07.1 COVID-19 (principal); J12.82 Pneumonia due to coronavirus disease 2019; R09.02 Hypoxemia; N17.9 Acute kidney failure, unspecified; E86.0 Dehydration; E11.9 Type 2 diabetes mellitus without complications; R19.7 Diarrhea, unspecified; I10 Essential (primary) hypertension; Z82.49 Family history of ischemic heart disease and other diseases of the circulatory system
CPT/HCPCS: 93005; 87088; 85025 ×3; 87086; 80048 ×2; 36415 ×2; 83735 ×3; 85610; 82947 ×6; 85379; 80076; 84484; 82728; 80053; 83880; 86140; 71045; 76770; 96374; 99285; U0003; J1650 ×2; J7030 ×2; J2920 ×6; G0378 ×3; 81003; 81015